=== PATIENT | female | born 2000 | race Caucasian/White ===

== ENCOUNTER 2019-01-12 09:38 | Inpatient (IN) | payer BC ==
[2019-01-12] MEDS ORDERED: AMPICILLIN 2,000 MG in SODIUM CHLORIDE 0.9% 100 ML IVPB STA (09:47)
[2019-01-12] MEDS ORDERED: OXYTOCIN 10 UNIT/ML 1 ML VIAL IM PRN (09:47)
[2019-01-12] MEDS ORDERED: CARBOPROST TROMETHAMINE 250 MCG/ML 1 ML AMP IM PRN (09:47)
[2019-01-12] MEDS ORDERED: METHYLERGONOVINE 0.2 MG/ML 1 ML AMP IM PRN (09:47)
[2019-01-12] MEDS ORDERED: TERBUTALINE 1 MG/ML VIAL SQ PRN (09:47)
[2019-01-12] MEDS ORDERED: LIDOCAINE 0.5% (PF) 5 MG/ML (50 ML SDV) SQ PRN (09:47)
[2019-01-12] MEDS ORDERED: LACTATED RINGERS 1,000 ML IV SCH (10:00)
[2019-01-12] MEDS ORDERED: OXYTOCIN 30 UNITS/500 ML NS 30 UNIT in SALINE 1 500ML.BAG IV SCH (10:00)
[2019-01-12] MEDS: LACTATED RINGERS 1,000 ML IV SCH ×2 (10:19→12:04)
[2019-01-12 10:26] LABS: Basophils # (A) 0.1 k/uL (0-0.2); Basophils % (A) 0 %; Eosinophils # (A) 0.1 k/uL (0-0.7); Eosinophils % (A) 1 %; HCT 35.5 % (34.0-46.0); Lymphocytes # (A) 2.1 k/uL (1.0-4.8); Lymphocytes % (A) 18 %; MCH 30.1 pg (25.0-35.0); MCHC 33.9 g/dL (31.0-37.0); Mean Platelet Volume 7.7; Monocytes # (A) 0.6 k/uL (0-1.0); Monocytes % (A) 5 %; Neutrophils # (A) 8.9 k/uL (1.3-7.7); Neutrophils % (A) 74 %; Platelet Count 204 k/uL (150-450); RBC 3.99 m/uL (3.80-5.40); RDW 15.4 % (11.5-15.5)
[2019-01-12 10:55] VITALS: BMI 25.2
[2019-01-12] MEDS ORDERED: BUTORPHANOL 1 MG/ML 1 ML VIAL IV PRN (11:06)
--- NOTE | 2019-01-12 12:04 | P.HPOB ---
History of Present Illness H&P Date: 01/12/19 Chief Complaint: IUP @ 38 5/7 weeks, SROM This is a 18-year-old 1 para 0 at 38-5/7 weeks that presents to labor and delivery with complaints of rupture of membranes around 7 AM. Patient notes the fluid to be clear in nature. Patient notes good movement and positive contractions are regular nature. Patient has been receiving routine care with myself since the first trimester. Her estimated due date is 726 based on first trimester ultrasound. Her has been essentially uncomplicated. On blood work she has a blood type of O+, rubella immune, RPR nonreactive, hepatitis B surface antigen negative, HIV negative she has a family history of cystic fibrosis which was tested and negative normal GDS, T Administered on 12/08/18, GBS +12/24/18. Review of Systems Constitutional: Denies chills, Denies fatigue, Denies fever Ears, nose, mouth and throat: Denies headache Cardiovascular: Reports leg edema Respiratory: Denies dyspnea Gastrointestinal: Denies constipation, Denies diarrhea, Denies nausea, Denies vomiting Genitourinary: Reports Past Medical History Past Medical History: No Reported History History of Any Multi-Drug Resistant Organisms: None Reported Past Surgical History: No Surgical Hx Reported Past Anesthesia/Blood Transfusion Reactions: No Reported Reaction Past Psychological History: No Psychological Hx Reported Smoking Status: Never smoker Past Alcohol Use History: None Reported Past Drug Use History: None Reported - Past Family History Mother Family Medical History: No Reported History Medications and Allergies Home Medications Medication Instructions Recorded Confirmed Type Pnv,Calcium 72/Iron/Folic Acid 1 tablet PO DAILY 01/12/19 01/12/19 History [ Plus Tablet] Allergies Allergy/AdvReac Type Severity Reaction Status Date / Time No Known Allergies Allergy Verified 05/28/16 15:33 Exam Osteopathic Statement: *. No significant issues noted on an osteopathic structural exam other than those noted in the History and Physical/Consult. Vital Signs Temp Pulse Resp BP 01/12/19 09:52 96.1 F L 85 16 120/83 Intake and Output 01/11/19 01/12/19 01/12/19 22:59 06:59 14:59 Other: Weight 62.596 kg Targeted physical exam is performed on this date in general this is about a well-nourished well-developed female in no acute distress, patient is noted to have nonlabored breathing heart has a regular rate and rhythm her abdomen is gravid and appropriate for gestational age, on vaginal exam she is noted to be 3/70/-2 an additional membrane is palpated and amniotomy is performed clear fluid was obtained. heart tones are noted to be category 1 and she is maty every 2-4 minutes. Results Result Diagrams: 01/12/19 10:10 Abnormal Lab Results - Last 24 Hours (Table) 01/12/19 Range/Units 10:10 WBC 12.0 H (4.0-11.0) k/uL Neutrophils # 8.9 H (1.3-7.7) k/uL Assessment and Plan (1) Term Current Visit: Yes Status: Acute Code(s): Z34.90 - ENCNTR FOR SUPRVSN OF NORMAL , UNSP, UNSP TRIMESTER SNOMED Code(s): 92420485 (2) Positive GBS test Current Visit: Yes Status: Acute Code(s): B95.1 - STREPTOCOCCUS, GROUP B, CAUSING DISEASES CLASSD ELSWHR SNOMED Code(s): 254297506 Plan: Patient is admitted to labor and delivery, IV ampicillin was started given her group beta strep positive culture. IV Pitocin is started for augmentation of labor. Stadol and epidural is discussed patient will decide when she becomes uncomfortable.
[2019-01-12] MEDS ORDERED: ROPIVACAINE 5MG/ML 20ML VIAL ONE (12:05)
[2019-01-12] MEDS ORDERED: fentaNYL (PF) 50 MCG/ML 5 ML AMP ONE (12:05)
[2019-01-12] MEDS ORDERED: SODIUM CHLORIDE 0.9% 100 ML BAG ONE (12:05)
[2019-01-12] MEDS ORDERED: AMPICILLIN 1,000 MG in SODIUM CHLORIDE 0.9% 50 ML IVPB SCH (14:00)
[2019-01-12] MEDS ORDERED: ZOLPIDEM 5 MG TAB PO PRN (17:09)
[2019-01-12] MEDS ORDERED: ACETAMINOPHEN TAB 325 MG TAB PO PRN (17:09)
[2019-01-12] MEDS ORDERED: WITCH HAZEL 1 EACH MED..PAD TOPICAL PRN (17:09)
[2019-01-12] MEDS ORDERED: SIMETHICONE 80 MG CHEWABLE PO PRN (17:09)
[2019-01-12] MEDS ORDERED: diphenhydrAMINE 50 MG CAP PO PRN (17:09)
[2019-01-12] MEDS ORDERED: BENZOCAINE/MENTHOL SPRAY 1 GM/SPRAY AEROSOL TOPICAL PRN (17:09)
[2019-01-12] MEDS ORDERED: diphenhydrAMINE 50 MG/ML 1 ML VIAL IVP PRN ×2 (17:09)
[2019-01-12] MEDS ORDERED: HYDROCORTISONE 2.5% RECTAL CREAM 30 GM TUBE RECTAL PRN (17:09)
[2019-01-12] MEDS ORDERED: diphenhydrAMINE 25 MG CAP PO PRN (17:09)
[2019-01-12] MEDS ORDERED: HYDROcodone/APAP 5-325MG 1 EACH TAB PO PRN (17:09)
[2019-01-12] MEDS ORDERED: LANOLIN CREAM 5 GM TUBE TOPICAL PRN (17:09)
--- NOTE | 2019-01-12 17:09 | P.PROBDLV ---
Vaginal Delivery Note - . Vaginal Delivery Note: This is a pleasant 18-year-old 1 para 0 at 38-5/7 weeks that presented earlier today with complaints of spontaneous rupture of membranes, clear in nature nature about 7 AM. Patient was noting irregular contractions at the time. Patient was noted to be GBS positive. Patient was admitted to labor and delivery IV antibiotics were begun and Pitocin augmentation of labor was eventually started. Patient became uncomfortable requesting epidural placement which was done without difficulty by the anesthesia department. Patient progressed through labor becoming complete and started pushing and had a vacuum- assisted vaginal delivery secondary to nonreassuring heart tones at +3 station. heart tones were noted be 65 bpm, vacuum was placed confirmed placement was noted with one gentle pull was delivered without difficulty. The middle cord was then doubly clamped and cut and the was handed off to awaiting RN. The placenta was delivered spontaneously intact with a three-vessel cord being noted. Of note a loose nuchal cord was noted and this was delivered through. On inspection the patient's vaginal vault a second degree vaginal laceration with bilateral labial lacerations were noted these were repaired in usual fashion with 3-0 repeat for the midline laceration and 4- 0 chromic for the labial lacerations. Delivery time of this viable female was 1647, weight of 6 lbs. 8 oz. with Apgars of 9 and 9 at one and 5 min utes respectively. Rectal exam was performed and normal in nature. Patient and tolerated delivery well and are resting comfortably. ALL COUNTS are correct 2.
[2019-01-12] MEDS ORDERED: OXYTOCIN 20 UNITS/1000 ML NS 1,000 ML IV SCH (17:15)
[2019-01-13] MEDS: SENNOSIDES-DOCUSATE SODIUM 1 EACH TAB PO SCH ×3 (05:06→23:50)
[2019-01-13 05:33] LABS: Basophils % (A) 0 %; Eosinophils # (A) 0.1 k/uL (0-0.7); Eosinophils % (A) 0 %; HCT 30.8 % (34.0-46.0); HGB 10.7 gm/dL (11.4-16.0); Lymphocytes # (A) 2.5 k/uL (1.0-4.8); Lymphocytes % (A) 15 %; MCH 30.5 pg (25.0-35.0); MCHC 34.8 g/dL (31.0-37.0); MCV 87.6 fL (80.0-100.0); Mean Platelet Volume 8.7; Monocytes # (A) 1.1 k/uL (0-1.0); Monocytes % (A) 6 %; Neutrophils # (A) 13.5 k/uL (1.3-7.7); Neutrophils % (A) 78 %; Platelet Count 187 k/uL (150-450); RBC 3.52 m/uL (3.80-5.40); RDW 14.8 % (11.5-15.5); WBC 17.3 k/uL (4.0-11.0)
--- NOTE | 2019-01-13 08:31 | P.PNOBGVD ---
Subjective - Subjective Principal diagnosis: PPD 1 VAVD, NRFHTS Interval history: Patient is doing well. She is involuting and voiding without difficulty she is tolerating a regular diet without nausea or vomiting. She states her pain is well-controlled. She notes her lochia to be moderate. She is struggling with breast-feeding as her is not interested in eating sinc delivery. Patient reports: Reports appetite normal, Reports voiding normally, Reports pain well controlled [place]: doing well (Some feeding difficulties will have regulatory affairs consultant see this patient today.) Objective - Latest Vital Signs Latest vital signs: Vital Signs Temp Pulse Resp BP 01/13/19 07:50 98.3 F 72 18 106/69 01/13/19 04:00 98.1 F 71 16 110/68 01/13/19 00:00 98 F 79 16 92/43 01/12/19 19:01 97.3 F L 62 16 117/75 01/12/19 18:40 97.5 F L 61 18 122/78 01/12/19 18:00 97.6 F 71 18 115/78 01/12/19 17:45 96.8 F L 64 18 116/71 01/12/19 17:30 63 18 113/69 01/12/19 17:15 96.5 F L 64 18 108/64 01/12/19 17:00 97.4 F L 72 18 106/63 01/12/19 09:52 96.1 F L 85 16 120/83 Intake and Output 01/12/19 01/13/19 01/13/19 22:59 06:59 14:59 Other: # Voids 1 1 - Exam Extremities: Present: normal Abdomen: Present: normal appearance, soft Uterus: Present: normal, firm - Labs Labs: Abnormal Lab Results - Last 24 Hours (Table) 01/12/19 01/13/19 Range/Units 10:10 05:26 WBC 12.0 H 17.3 H (4.0-11.0) k/uL RBC 3.52 L (3.80-5.40) m/uL Hgb 10.7 L (11.4-16.0) gm/dL Hct 30.8 L (34.0-46.0) % Neutrophils # 8.9 H 13.5 H (1.3-7.7) k/uL Monocytes # 1.1 H (0-1.0) k/uL Assessment and Plan (1) Term Current Visit: Yes Status: Acute Code(s): Z34.90 - ENCNTR FOR SUPRVSN OF NORMAL , UNSP, UNSP TRIMESTER SNOMED Code(s): 48513593 (2) Positive GBS test Current Visit: Yes Status: Acute Code(s): B95.1 - STREPTOCOCCUS, GROUP B, CAUSING DISEASES CLASSD ELSR SNOMED Code(s): 570307063 (3) Status post vacuum-assisted vaginal delivery Current Visit: Yes Status: Acute Code(s): Z87.59 - PERSONAL HISTORY OF COMP OF PREG, CHLDBRTH AND THE PUERP SNOMED Code(s): 161766170 Plan: Patient is doing well , we will monitor for feeding, and anticipate discharge home tomorrow.
[2019-01-13] MEDS ORDERED: PNV CALCIUM PO SCH (09:00)
[2019-01-13] MEDS ORDERED: IRON PO SCH (09:00)
[2019-01-13] MEDS ORDERED: FOLIC ACID PO SCH (09:00)
[2019-01-13] MEDS: IBUPROFEN 600 MG TAB PO PRN ×2 (11:07→23:49)
--- NOTE | 2019-01-14 08:14 | P.DS ---
Providers Date of admission: 01/12/19 09:49 Expected date of discharge: 01/14/19 Attending physician: Valeria Pozo Primary care physician: Stated None - Discharge Diagnosis(es) (1) Term Current Visit: Yes Status: Acute (2) Positive GBS test Current Visit: Yes Status: Acute (3) Status post vacuum-assisted vaginal delivery Current Visit: Yes Status: Acute Hospital Course: This is a pleasant 18-year-old 1 para 0 that presented to labor and delivery at 38-5/7 weeks with complaints of spontaneous rupture of membranes. Patient noted contractions at that time and was noted to be GBS positive. IV a ntibiotics were begun along with Pitocin augmentation of labor. Patient became uncomfortable requesting epidural placement. Epidural was placed without difficulty by the anesthesia department. Patient progressed to complete began pushing and at +3 station heart tones were noted to be 65 therefore a vacuum was placed and with one gentle pull the was delivered without difficulty. Female delivered at 1647, weight of 6 lbs. 8 oz. and Apgars of 9 and 9 at one and 5 minutes respectively. Patient did sustain a second- degree vaginal laceration along with bilateral labial lacerations these were repaired in the usual fashion. Patient's course has been uneventful. She is ambulating and voiding without difficulty. Her pain is well-controlled. She is breast-feeding. She denies concerns and is ready for discharge home on this day #2 Patient Condition at Discharge: Good Plan - Discharge Summary New Discharge Prescriptions: No Action Pnv,Calcium 72/Iron/Folic Acid [ Plus Tablet] 1 tablet PO DAILY Discharge Medication List Pnv,Calcium 72/Iron/Folic Acid [ Plus Tablet] 1 tablet PO DAILY 01/12/19 [History] Follow up Appointment(s)/Referral(s): Valeria Pozo DO [Doctor of Osteopathic Medicine] - 4 Weeks Patient Instructions/Handouts: Vaginal Delivery (DC), Vaginal Delivery (GEN) Discharge Disposition: HOME SELF-CARE
[2019-01-14] MEDS: SENNOSIDES-DOCUSATE SODIUM 1 EACH TAB PO SCH (08:29)
[2019-01-14 17:56] VITALS: BP 117/83; PULSE 73; RESP 16; TEMP 98.9
== END 2019-01-14 17:50 | disposition home or self-care (01) | DRG 807 ==
LOC: FBPOP 09:38 → 4FBP 09:49
PROVIDERS: ADMIT Obstetrics & Gynecology Obstetrics; ATTEND Obstetrics & Gynecology Obstetrics
PROC: 10D07Z6 Extraction of Products of Conception, Vacuum, Via Natural or Artificial Opening (ICD-10-PCS; principal; 2019-01-12)
PROC: 0KQM0ZZ Repair Perineum Muscle, Open Approach (ICD-10-PCS; 2019-01-12)
PROC: 0HQ9XZZ Repair Perineum Skin, External Approach (ICD-10-PCS; 2019-01-12)
DX: O69.81X0 Labor and delivery complicated by cord around neck, without compression, not applicable or unspecified (principal); Z37.0 Single live birth; O99.824 Streptococcus B carrier state complicating childbirth; O76 Abnormality in fetal heart rate and rhythm complicating labor and delivery; O70.1 Second degree perineal laceration during delivery; O70.0 First degree perineal laceration during delivery; Z3A.38 38 weeks gestation of pregnancy; Z83.49 Family history of other endocrine, nutritional and metabolic diseases
CPT/HCPCS: 59025; 84112; 85025; 86850; 86900; 86901; 99213

== ENCOUNTER → 2023-02-26 | Day surgery (SDC) | payer BC, OTHER ==
[2023-02-19 18:09] VITALS: BMI 23.8
[~2023-02-26] MED LIST: SODIUM CHLORIDE 0.9% 1,000 ML IV SCH
[2023-02-26 11:09] VITALS: BP 128/81; PULSE 65; RESP 14; TEMP 98.4
--- NOTE | 2023-02-26 14:20 | P.EPPROC ---
- EP Procedure Note Electrophysiology Procedure Note: Diagnosis Recurrent syncope 12-lead EKG shows sinus rhythm normal AL narrow QRS heart rates 50 beats a minute normal QT interval no delta waves Tilt table test per protocol Baseline blood pressure 111/61 mmHg Baseline 156 beats a minute Patient was tilted upright at night was 70 per protocol Within 2014 minutes the patient's been sinus tachycardia per 112 beats a minute and following that there was a sudden drop in blood pressure. She felt lightheaded nauseous drowsy and was presyncopal When she was laid supine a heart rate normalized 50s and her blood pressure normalized Impression Normal twelve-lead EKG Neurocardiogenic response to upright tilting
== END ==
LOC: CATHEP 10:44
PROVIDERS: ATTEND Internal Medicine Clinical Cardiac Electrophysiology
DX: I47.1 Supraventricular tachycardia (principal); F17.210 Nicotine dependence, cigarettes, uncomplicated; Z79.899 Other long term (current) drug therapy
CPT/HCPCS: 81025; 93660

== ENCOUNTER → 2024-05-13 | Outpatient (CLI) | payer OTHER ==
--- NOTE | 2024-05-14 19:38 | US ---
EXAMINATION TYPE: US transvaginal DATE OF EXAM: 05/13/2024 COMPARISON: NONE CLINICAL INDICATION: Female, 24 years old with history of R78.89 ELEVATED TESTOST N91.2 AMENORRHEA R8 7.619; elevated testosterone. Pt has not had a period since August 2023. . TECHNIQUE: Transvaginal (TV). FINDINGS: Date of LMP: August 2023 EXAM MEASUREMENTS: Uterus: 8.1 x 4.8 x 3.1 cm Endometrial Stripe: 0.4 cm Right Ovary: 4.5 x 3.0 x 2.2 cm Left Ovary: 4.5 x 2.9 x 1.9 cm 1. Uterus: Anteverted wnl 2. Endometrium: wnl 3. Right Ovary: multiple follicles seen. 4. Left Ovary: multiple follicles seen. 5. Bilateral Adnexa: wnl 6. Posterior cul-de-sac: wnl IMPRESSION: 1. No acute abnormality pelvic ultrasound. [facility], , 05/14/2024 7:36 PM
== END | disposition home or self-care (01) ==
LOC: RADUSWWP 14:57
PROVIDERS: ATTEND Family Medicine
DX: N91.2 Amenorrhea, unspecified (principal); R87.619 Unspecified abnormal cytological findings in specimens from cervix uteri
CPT/HCPCS: 76830